=== PATIENT | female | born 1955 | race Caucasian/White ===

== ENCOUNTER 2024-04-12 13:14 | Observation (INO) ==
--- NOTE | 2024-04-12 14:21 | Emergency Department Note ---
Impression & Plan Syncope, Hypoxia ED Provider Note NAME: JESSICA BYRD AGE: 68 SEX: F : 1955 ARRIVES VIA: Ambulance INFORMANT: Patient ED PROVIDER(S): Bo Noel DO CHIEF COMPLAINT: syncope HPI: Patient is a 68-year-old female who presents the ER for a syncopal episode. This is her fifth syncopal episode of syncope. She notes prior to the event she suddenly felt very clammy and lightheaded and passed out. She had no chest pain or shortness of breath. She did hit her head. Following the fall she complains of head pain and neck pain as well as right shoulder pain. No weakness or numbness. No belly pain. No nausea, vomiting, or diarrhea. No dysuria, urgency, or frequency. No other exacerbating or remitting factors. ADDITIONAL HISTORY OBTAINED: Per HPI Chronic Medical/Social Conditions Affecting Care: Per HPI PAST MEDICAL HISTORY:See Below PAST SURGICAL HISTORY:See Below FAMILY HISTORY:See Below SOCIAL HISTORY:See Below HOME MEDICATIONS:See Below ALLERGIES:See Below VITALS:See Below PHYSICAL EXAMINATION: GENERAL: Sitting up in bed, alert, well appearing, well nourished, no distress, non-toxic, lying in bed cervical collar in place EYE EXAM: normal conjunctiva. PERRL and EOM's grossly intact. HEAD: Normocephalic/atraumatic OROPHARYNX: no exudate, no erythema, lips, buccal mucosa, and tongue normal and mucous membranes are moist NECK: supple, no nuchal rigidity, no adenopathy, non-tender CHEST: No tenderness anteriorly and posteriorly with exception of tenderness over the right shoulder LUNGS: Clear to auscultation. Normal chest wall mechanics HEART: no murmurs, S1 normal and S2 normal ABDOMEN: abdomen soft, non-tender, normo-active bowel sounds, no masses, no rebound or guarding. PELVIS: Stable to compression anteriorly and posteriorly BACK: Back is symmetrical on inspection and there is no deformity, no midline tenderness, no CVA tenderness. SKIN: no rashes and no bruising UPPER EXTREMITIES: Flexion-extension left shoulder elbow wrist and grasp as well as palpation of the humerus and forearm without tenderness. Tenderness over the right humeral head with no tenderness throughout the remainder of the humerus and forearm and hand. LOWER EXTREMITIES: No pitting edema. NEURO EXAM: Normal sensorium, cranial nerves II-XII grossly intact, normal speech, no gross weakness of arms, no gross weakness of legs. No drift. Finger to nose intact. Gross sensation intact. MEDICAL DECISION MAKING: Patient is a 68-year-old female who presents ER for syncopal episode. Upon arrival of EMS she was found hypoxic and she was found to be hypoxic upon arrival here for short period of time. IV was established blood work was obtained. Labs show no significant leukocytosis or anemia. BMP along with LFTs bilirubin and lipase is unremarkable. Troponin was negative. With her age and presentation I did discuss case with the hospitalist for the syncopal episode in setting of short period of hypoxia. Loop recorder was interrogated and per my call from [employer] showed a normal sinus rhythm today. Patient was given IV fluids. Consults/Care Managements Discussions: Per [facility] Triage Nursing notes reviewed. Limited review of prior medical records performed Vital Signs: reviewed and remarkable for hypoxia Differential diagnosis: Differential diagnosis includes etiologies such as vasovagal event, infection, hypoglycemia, electrolyte abnormalities, cardiac sources, intracerebral event, toxicologic, neurologic, as well as others were entertained. ER treatment provided: See below Diagnostics interpreted by me include EKG and cardiac monitoring as listed below: -Cardiac Monitoring: An order was placed for continuous cardiac monitoring. The monitor shows a rate of 82 with sinus rhythm. -ECG: Sinus rhythm rate 82 Normal axis No PVCs QTc 436 -Laboratory studies:Interpreted by me as stated above in [facility] and shown below. Imaging studies: Xrays: As interpreted by me: Portable AP upright 1 view of the chest shows no focal infiltrate X-ray of the shoulder shows no acute fracture CTs show: CT head cervical spine and CT of the chest was negative Procedures:none Critical Care: None Past Med/Surg History Problem List (Updated 04/12/24 @ 20:20 by Bo Noel DO) Hypoxia (Acute) Depression Hyperlipidemia Essential hypertension Syncope (Acute) Social History Smoking Status: Never smoker Feels Safe at Home: Yes Allergies Allergies Allergy/AdvReac Type Severity Reaction Status Date / Time No Known Allergies Allergy Unverified 04/12/24 17:04 Home Meds Home Medications Medication Instructions Recorded Confirmed aspirin 81 mg tablet,delayed 81 mg PO HS 04/12/24 04/12/24 release buspirone 10 mg tablet 10 mg PO TID 04/12/24 04/12/24 cholecalciferol (vitamin D3) 50 50 mcg PO QAM 04/12/24 04/12/24 mcg (2,000 unit) tablet (Vitamin D3) levothyroxine 100 mcg tablet 1 mcg PO DAILYBB 04/12/24 04/12/24 metoprolol succinate 25 mg 25 mg PO HS 04/12/24 04/12/24 tablet,extended release 24 hr rabeprazole 20 mg tablet,delayed 20 mg PO BID 04/12/24 04/12/24 release rosuvastatin 20 mg tablet 20 mg PO HS 04/12/24 04/12/24 Results & Data (ED) Vital Signs Vital Signs - 24 hr 04/12/24 13:27 04/12/24 13:28 04/12/24 13:30 Temperature 37.2 C Temperature Source Oral Pulse Rate 83 94 H 85 Pulse Rate from SpO2 Sensor Respiratory Rate 20 Respiratory Effort / Characteristics Non-Labored Spontaneous Respiratory Depth Normal Blood Pressure 136/74 Blood Pressure Mean 94 Pulse Oximetry 97 Oxygen Delivery Method Room Air Oxygen Flow Rate Sepsis Recent Fever Within 48 Hours No Sepsis New/Unexplained Change in Mental Status No Sepsis Action Taken by Nursing No Action Required 04/12/24 13:30 04/12/24 14:00 04/12/24 14:16 Temperature Temperature Source Pulse Rate 92 H 86 Pulse Rate from SpO2 Sensor 86 Respiratory Rate 17 15 Respiratory Effort / Characteristics Respiratory Depth Blood Pressure Blood Pressure Mean Pulse Oximetry 89 L 88 L Oxygen Delivery Method Room Air Room Air Oxygen Flow Rate Sepsis Recent Fever Within 48 Hours Sepsis New/Unexplained Change in Mental Status Sepsis Action Taken by Nursing 04/12/24 14:19 04/12/24 14:30 04/12/24 15:00 Temperature Temperature Source Pulse Rate 91 H Pulse Rate from SpO2 Sensor 88 Respiratory Rate 12 Respiratory Effort / Characteristics Respiratory Depth Blood Pressure Blood Pressure Mean Pulse Oximetry 95 100 Oxygen Delivery Method Nasal Cannula Room Air Oxygen Flow Rate 2 Sepsis Recent Fever Within 48 Hours Sepsis New/Unexplained Change in Mental Status Sepsis Action Taken by Nursing 04/12/24 15:12 04/12/24 15:13 04/12/24 15:13 Temperature Temperature Source Pulse Rate 90 86 Pulse Rate from SpO2 Sensor Respiratory Rate 15 20 Respiratory Effort / Characteristics Respiratory Depth Blood Pressure 140/77 Blood Pressure Mean 86 Pulse Oximetry Oxygen Delivery Method Oxygen Flow Rate Sepsis Recent Fever Within 48 Hours Sepsis New/Unexplained Change in Mental Status Sepsis Action Taken by Nursing 04/12/24 15:37 04/12/24 15:37 04/12/24 16:00 Temperature Temperature Source Pulse Rate 87 Pulse Rate from SpO2 Sensor 88 Respiratory Rate 19 Respiratory Effort / Characteristics Respiratory Depth Blood Pressure 141/89 H 135/80 Blood Pressure Mean 126 89 Pulse Oximetry 97 Oxygen Delivery Method Oxygen Flow Rate Sepsis Recent Fever Within 48 Hours Sepsis New/Unexplained Change in Mental Status Sepsis Action Taken by Nursing 04/12/24 16:00 04/12/24 16:30 04/12/24 16:30 Temperature Temperature Source Pulse Rate 87 87 Pulse Rate from SpO2 Sensor 86 87 Respiratory Rate 16 23 Respiratory Effort / Characteristics Respiratory Depth Blood Pressure 155/83 H Blood Pressure Mean 97 Pulse Oximetry 93 Oxygen Delivery Method Oxygen Flow Rate Sepsis Recent Fever Within 48 Hours Sepsis New/Unexplained Change in Mental Status Sepsis Action Taken by Nursing Laboratory Data 04/12/24 13:37 04/12/24 13:37 Lab Results 04/12/24 Range/Units 13:37 WBC 7.39 (4.8-10.8) K/ul RBC 4.59 (4.20-5.40) M/uL Hgb 13.7 (12.0-16.0) g/dl Hct 40.7 (37.0-47.0) % MCV 88.7 (80.0-100.0) fL MCH 29.8 (25.0-34.0) pg MCHC 33.7 (32.0-36.0) g/dL RDW Std Deviation 43.8 (36.4-46.3) fL RDW Coeff of Candy 13.5 (11.5-14.5) % Plt Count 323 (130-400) K/uL MPV 10.6 (9.4-12.4) fL Immature Gran % (Auto) 0.4 % Neut % (Auto) 74.0 % Lymph % (Auto) 16.1 % [place] % (Auto) 7.3 % Eos % (Auto) 1.5 % Baso % (Auto) 0.7 % Neut # (Auto) 5.47 (1.40-6.50) K/uL Lymph # (Auto) 1.19 L (1.20-3.40) K/uL [place] # (Auto) 0.54 (0.11-0.59) K/uL Eos # (Auto) 0.11 (0.00-0.50) K/uL Baso # (Auto) 0.05 (0.00-0.20) K/uL Immature Gran # (Auto) 0.03 (0.01-0.20) K/uL Sodium 135 L (136-145) mmol/L Potassium 3.6 (3.5-5.1) mmol/L Chloride 101 (98-107) mmol/L Carbon Dioxide 28 (21-32) mmol/L Anion Gap 6 (3-11) BUN 13 (6-23) mg/dl Creatinine 1.01 (0.6-1.2) mg/dl Est Cr Clr Drug Dosing 50.6 ml/min Est GFR ( Amer) 65.3 ml/min Est GFR (Non-Af Amer) 56.4 ml/min BUN/Creatinine Ratio 12.9 (10-20) Glucose 150 H (70-99(Fasting)) mg/dl Calcium 9.2 (8.6-10.3) mg/dl Total Bilirubin 0.5 (0.2-1.0) mg/dl AST 18 (13-39) U/L ALT 14 (7-52) U/L Alkaline Phosphatase 90 (34-104) U/L Troponin I High Sens 4.2 (0-14) pg/ml Total Protein 6.8 (6.0-8.3) gm/dl Albumin 4.3 (3.4-5.0) gm/dl Globulin 2.5 (2.5-4.0) gm/dl Albumin/Globulin Ratio 1.7 (0.9-2) Lipase 19 (11-82) U/L Administered Medications Discontinued Medications Ioversol (Optiray 320 125ml) 118 ml IV ONCE ONE Stop: 04/12/24 15:38 Last Admin: 04/12/24 15:37 Dose: 118 ml Documented By: MAF Imaging Data Radiologist's Impression: Chest X-Ray 04/12/24 14:16 XR chest 1V portable CLINICAL HISTORY: Chest pain, nonspecific COMPARISON STUDY: No previous studies for comparison. FINDINGS: An electronic device projects over the left chest. Lung volumes are normal. Lungs are clear. There is no pneumothorax or pleural effusion. Cardiac size is normal. Mediastinal contours are normal. There is no evidence for pulmonary edema. IMPRESSION: No acute cardiopulmonary findings. ACT 112: Negative or not required by law. Electronically signed by: Manan Hussein M.D. 04/12/2024 2:[address] 04/12/24 14:17 CT SCAN OF THE CERVICAL SPINE CLINICAL HISTORY: Syncope. Fall. COMPARISON STUDY: No priors. TECHNIQUE: CT scan of the cervical spine is performed from the skull base to the upper thoracic spine. Images are reviewed in the axial, sagittal, and coronal planes. IV contrast was not administered for this examination. A dose lowering technique was utilized adhering to the principles of ALARA. FINDINGS: Skeletal structures: The skeletal structures are osteopenic. There is no evidence of fracture or subluxation involving the cervical spine. Vertebral body height and alignment are maintained. There is straightening of cervical lordosis. Anterior osteophytes are seen throughout. The odontoid process and lateral masses are intact. The atlantoaxial articulation is preserved noting productive degenerative change. The spinous processes appear intact. There is mild multilevel facet arthropathy. Intervertebral discs: There is moderate to severe disc space narrowing at C4-C5, C5-C6, and C6-C7 with associated endplate sclerosis. Central canal: Posterior disc osteophyte complexes at C4-C5, C5-C6, and C6-C7 may contribute to acquired compromise of the central canal. Soft tissues: The prevertebral and paraspinous soft tissues are within normal limits. Calvarium: The visualized calvarium at the skull base appears intact. Brain parenchyma: Partially visualized brain parenchyma at the skull base is within normal limits. Sinuses and mastoids: The visualized paranasal sinuses are clear. There is trace left mastoid effusion. The right mastoid air cells are well pneumatized. Lung apices: Advanced emphysematous change and fibrosis is seen at the apices. IMPRESSION: 1. There is no evidence of fracture or subluxation involving the cervical spine. 2. Osteopenia and spondylotic change as above. 3. Emphysema. ACT 112: Negative or not required by law. Electronically signed by: Andrea Ramsey M.D. 04/12/2024 3:[address] 04/12/24 14:17 CT OF THE HEAD WITHOUT CONTRAST CLINICAL HISTORY: Fall. COMPARISON STUDY: No previous studies for comparison. TECHNIQUE: Helical axial images of the head were obtained without IV contrast. Automated exposure control was utilized for the study. A dose lowering technique was utilized adhering to the principles of ALARA. FINDINGS: No acute intracranial hemorrhage, midline shift or mass effect is present. The ventricular system is unremarkable. The basal cisterns are patent. No extra-axial collections are present. There are no findings to suggest acute dural sinus thrombosis or acute territorial infarct. No significant calvarial abnormalities are present. Visualized portions of the sinuses and mastoid air cells are clear. There is a small right frontal scalp contusion. IMPRESSION: 1. No acute intracranial findings. 2. Small right frontal scalp contusion. No calvarial fracture. ACT 112: Negative or not required by law. Electronically signed by: Manan Hussein M.D. 04/12/2024 3:48 PM Shoulder X-Ray 04/12/24 14:17 XR shoulder RT min 2V routine CLINICAL HISTORY: r shoulder pain TECHNIQUE: 3 views of the right shoulder were obtained. Comparison: None available at the time of this dictation. FINDINGS: There is no evidence of an acute fracture. Joint spaces are well-preserved. The overlying soft tissues are unremarkable. The visualized portions of the lungs are clear. IMPRESSION: No evidence of acute osseous injury. ACT 112: Negative or not required by law. Electronically signed by: Almas Olivera M.D. 04/12/2024 2:57 PM Chest CTA 04/12/24 14:40 CT ANGIOGRAPHY OF THE CHEST, PULMONARY EMBOLUS PROTOCOL CLINICAL HISTORY: Syncope. Hypoxia. COMPARISON STUDY: Chest radiograph performed earlier today. TECHNIQUE: Following IV administration of 118 mL of Optiray, helical axial images of the chest were obtained utilizing the pulmonary embolus protocol. Maximal intensity projections and sagittal and coronal reformats were viewed on an independent 3D workstation. IV contrast was administered without complication. Automated exposure control was utilized for the study. A dose lowering technique was utilized adhering to the principles of ALARA. CT DOSE: 1762.95 mGy.cm FINDINGS: No pulmonary emboli are identified. There is no thoracic aortic dissection. No pericardial effusion is present. The heart is mildly enlarged. There is no thoracic lymphadenopathy. Moderate emphysema is present. No consolidation is identified to suggest pneumonia. Subpleural opacities favor atelectasis. Several perifissural nodules along the minor fissure measure up to 7 mm. A few additional small subpleural nodules measure up to 4 mm. No acute fractures within the visualized bony thorax are identified. Pancreatic duct is prominent, measuring approximately 4 mm in caliber. IMPRESSION: 1. No pulmonary emboli identified. 2. No acute intrathoracic findings. 3. Emphysema. Subpleural opacities suggestive of atelectasis. No consolidation to suggest pneumonia. 4. A few small subpleural/perifissural nodules within the right lung. These are likely benign. Follow up chest CT in 6 months to ensure stability is recommended. ACT 112: Negative or not required by law. Electronically signed by: Manan Hussein M.D. 04/12/2024 3:57 PM Discharge Plan Visit Data Chief Complaint: Syncope Stated Complaint: SYNCOPE ED Provider: Bo Noel Discharge Problem: Syncope, Hypoxia Patient Disposition: Admitted As Inpatient Discharge Instructions Interventions: ED Discharge Assessment Last Done: 04/12/24 18:19 Discharge Problem: Syncope Qualifiers: Syncope type: unspecified Qualified Code(s): R55 - Syncope and collapse
[2024-04-12 14:49] LABS: Basophils # (auto) 0.05 K/uL (0.00-0.20); Basophils % (auto) 0.7 %; Eosinophils # (auto) 0.11 K/uL (0.00-0.50); Eosinophils % (auto) 1.5 %; Hematocrit (blood only) 40.7 % (37.0-47.0); Hemoglobin 13.7 g/dl (12.0-16.0); Immature Granulocytes # (auto) 0.03 K/uL (0.01-0.20); Immature Granulocytes % (auto) 0.4 %; Lymphocytes # (auto) 1.19 K/uL (1.20-3.40); Lymphocytes % (auto) 16.1 %; Mean Corpuscular Hemoglobin 29.8 pg (25.0-34.0); Mean Corpuscular Hgb Conc 33.7 g/dL (32.0-36.0); Mean Corpuscular Volume 88.7 fL (80.0-100.0); Mean Platelet Volume 10.6 fL (9.4-12.4); Monocytes # (auto) 0.54 K/uL (0.11-0.59); Monocytes % (auto) 7.3 %; Neutrophils # (auto) 5.47 K/uL (1.40-6.50); Platelet Count 323 K/uL (130-400); RDW Coefficient of Variation 13.5 % (11.5-14.5); RDW Standard Deviation 43.8 fL (36.4-46.3); Red Blood Count 4.59 M/uL (4.20-5.40); White Blood Count 7.39 K/ul (4.8-10.8)
[2024-04-12 14:56] LABS: Albumin Globulin Ratio 1.7 (0.9-2); Albumin Level 4.3 gm/dl (3.4-5.0); BUN Creatinine Ratio 12.9 (10-20); Bilirubin,Total 0.5 mg/dl (0.2-1.0); Calcium 9.2 mg/dl (8.6-10.3); Creatinine Clr Calc Pharmacy 50.6 ml/min; Est GFR (African American) 65.3 ml/min; Est GFR (Non-African American) 56.4 ml/min; Globulin 2.5 gm/dl (2.5-4.0); Potassium 3.6 mmol/L (3.5-5.1); Total Protein 6.8 gm/dl (6.0-8.3)
--- NOTE | 2024-04-12 14:58 | XRay Report ---
XR shoulder RT min 2V routine CLINICAL HISTORY: r shoulder pain TECHNIQUE: 3 views of the right shoulder were obtained. Comparison: None available at the time of this dictation. FINDINGS: There is no evidence of an acute fracture. Joint spaces are well-preserved. The overlying soft tissue s are unremarkable. The visualized portions of the lungs are clear. IMPRESSION: No evidence of acute osseous injury. ACT 112: Negative or not required by law. Electronically signed by: Almas Olivera M.D. 04/12/2024 2:57 PM
--- NOTE | 2024-04-12 14:59 | XRay Report ---
XR chest 1V portable CLINICAL HISTORY: Chest pain, nonspecific COMPARISON STUDY: No previous studies for comparison. FINDINGS: An electronic device projects over the left chest. Lung volumes are normal. Lungs are clear . There is no pneumothorax or pleural effusion. Cardiac size is normal. Mediastinal contours are norm al. There is no evidence for pulmonary edema. IMPRESSION: No acute cardiopulmonary findings. ACT 112: Negative or not required by law. Electronically signed by: Manan Hussein M.D. 04/12/2024 2:58 PM
[2024-04-12 15:01] LABS: Troponin I High Sensitivity 4.2 pg/ml (0-14)
[2024-04-12] MEDS: OPTIRAY 320 125ml IV ONE (15:37)
--- NOTE | 2024-04-12 15:50 | CT Scan Report ---
CT OF THE HEAD WITHOUT CONTRAST CLINICAL HISTORY: Fall. COMPARISON STUDY: No previous studies for comparison. TECHNIQUE: Helical axial images of the head were obtained without IV contrast. Automated exposure con trol was utilized for the study. A dose lowering technique was utilized adhering to the principles o f ALARA. FINDINGS: No acute intracranial hemorrhage, midline shift or mass effect is present. The ventricular system is unremarkable. The basal cisterns are patent. No extra-axial collections are present. There are no findings to suggest acute dural sinus thrombosis or acute territorial infarct. No significant calvarial abnormalities are present. Visualized portions of the sinuses and mastoid air cells are katelyn ar. There is a small right frontal scalp contusion. IMPRESSION: 1. No acute intracranial findings. 2. Small right frontal scalp contusion. No calvarial fracture. ACT 112: Negative or not required by law. Electronically signed by: Manan Hussein M.D. 04/12/2024 3:48 PM
--- NOTE | 2024-04-12 15:57 | CT Scan Report ---
CT SCAN OF THE CERVICAL SPINE CLINICAL HISTORY: Syncope. Fall. COMPARISON STUDY: No priors. TECHNIQUE: CT scan of the cervical spine is performed from the skull base to the upper thoracic spine . Images are reviewed in the axial, sagittal, and coronal planes. IV contrast was not administered fo r this examination. A dose lowering technique was utilized adhering to the principles of ALARA. FINDINGS: Skeletal structures: The skeletal structures are osteopenic. There is no evidence of fracture or subl uxation involving the cervical spine. Vertebral body height and alignment are maintained. There is s traightening of cervical lordosis. Anterior osteophytes are seen throughout. The odontoid process and lateral masses are intact. The atlantoaxial articulation is preserved noting productive degenerative change. The spinous processes appear intact. There is mild multilevel facet arthropathy. Intervertebral discs: There is moderate to severe disc space narrowing at C4-C5, C5-C6, and C6-C7 wit h associated endplate sclerosis. Central canal: Posterior disc osteophyte complexes at C4-C5, C5-C6, and C6-C7 may contribute to acqui red compromise of the central canal. Soft tissues: The prevertebral and paraspinous soft tissues are within normal limits. Calvarium: The visualized calvarium at the skull base appears intact. Brain parenchyma: Partially visualized brain parenchyma at the skull base is within normal limits. Sinuses and mastoids: The visualized paranasal sinuses are clear. There is trace left mastoid effusio n. The right mastoid air cells are well pneumatized. Lung apices: Advanced emphysematous change and fibrosis is seen at the apices. IMPRESSION: 1. There is no evidence of fracture or subluxation involving the cervical spine. 2. Osteopenia and spondylotic change as above. 3. Emphysema. ACT 112: Negative or not required by law. Electronically signed by: Andrea Ramsey M.D. 04/12/2024 3:54 PM
--- NOTE | 2024-04-12 15:59 | CT Scan Report ---
CT ANGIOGRAPHY OF THE CHEST, PULMONARY EMBOLUS PROTOCOL CLINICAL HISTORY: Syncope. Hypoxia. COMPARISON STUDY: Chest radiograph performed earlier today. TECHNIQUE: Following IV administration of 118 mL of Optiray, helical axial images of the chest were o btained utilizing the pulmonary embolus protocol. Maximal intensity projections and sagittal and cor onal reformats were viewed on an independent 3D workstation. IV contrast was administered without co mplication. Automated exposure control was utilized for the study. A dose lowering technique was ut ilized adhering to the principles of ALARA. CT DOSE: 1762.95 mGy.cm FINDINGS: No pulmonary emboli are identified. There is no thoracic aortic dissection. No pericardial effusion is present. The heart is mildly enlarged. There is no thoracic lymphadenopathy. Moderate em physema is present. No consolidation is identified to suggest pneumonia. Subpleural opacities favor a telectasis. Several perifissural nodules along the minor fissure measure up to 7 mm. A few additional small subpleural nodules measure up to 4 mm. No acute fractures within the visualized bony thorax ar e identified. Pancreatic duct is prominent, measuring approximately 4 mm in caliber. IMPRESSION: 1. No pulmonary emboli identified. 2. No acute intrathoracic findings. 3. Emphysema. Subpleural opacities suggestive of atelectasis. No consolidation to suggest pneumonia. 4. A few small subpleural/perifissural nodules within the right lung. These are likely benign. Follow up chest CT in 6 months to ensure stability is recommended. ACT 112: Negative or not required by law. Electronically signed by: Manan Hussein M.D. 04/12/2024 3:57 PM
--- NOTE | 2024-04-12 17:13 | History & Physical Report ---
Date of Service April 12, 2024 Assessment & Plan (1) Syncope: Plan: Her symptoms sound as if they are cardiac mediated. Metoprolol is on hold. Telemetry. Consult cardiology. Check thyroid status. Obtain cardiac echo and carotid Doppler studies. Monitor orthostatic blood pressures. IV fluids ordered (2) Essential hypertension: Plan: Orthostatic blood pressure checks. Hold metoprolol for now. (3) Hyperlipidemia: Plan: She is on statin therapy, Crestor. Check fasting lipid profile (4) Depression: Plan: She takes BuSpar which is on hold Plan To be determined History of Present Illness Chief Complaint: Recurrent syncope Primary Care Provider: ZAINA Packer 68-year-old female with a history of essential hypertension, hyperlipidemia, depression. She has suffered multiple recent syncopal episodes, this being her fifth. She states that he has syncope occurs whether she is sitting or standing and occurs without warning. She denies vertigo. No recent fever or evidence of UTI. No melena or hematochezia. She does have a loop recorder in place that was evaluated in the ED with no significant dysrhythmia noted. Chest CTA negative for PE. Chest x-ray negative. She denies palpitations. Right shoulder negative for fracture. Cervical spine CT scan negative for acute fracture. Head CT scan negative. Allergies Allergy/AdvReac Type Severity Reaction Status Date / Time No Known Allergies Allergy Unverified 04/12/24 17:04 Home Medications Medication Instructions Recorded Confirmed Type aspirin 81 mg tablet,delayed 81 mg PO HS 04/12/24 04/12/24 History release buspirone 10 mg tablet 10 mg PO TID 04/12/24 04/12/24 History cholecalciferol (vitamin D3) 50 50 mcg PO QAM 04/12/24 04/12/24 History mcg (2,000 unit) tablet (Vitamin D3) levothyroxine 100 mcg tablet 1 mcg PO DAILYBB 04/12/24 04/12/24 History metoprolol succinate 25 mg 25 mg PO HS 04/12/24 04/12/24 History tablet,extended release 24 hr rabeprazole 20 mg tablet,delayed 20 mg PO BID 04/12/24 04/12/24 History release rosuvastatin 20 mg tablet 20 mg PO HS 04/12/24 04/12/24 History Past Med/Surg History Problem List (Updated 04/12/24 @ 17:11 by Jaswant Yuan MD) Depression Hyperlipidemia Essential hypertension Syncope Social History Smoking Status: Never smoker Feels Safe at Home: Yes Review of Systems 2 Review of Systems: Constitutional-no fever or chills ENT-no blurred vision, no double vision, no epistaxis, no sore throat Respiratory-no cough, no wheezing, no shortness of breath Cardiac-no palpitations, no chest pain, no syncope GI-no nausea, vomiting, diarrhea, melena, hematochezia -no urinary retention, no urinary incontinence, no dysuria, no hematuria Musculoskeletal-no joint pain, no muscle tenderness Skin-no bruising, no rashes, no pruritus Neuro-no isolated weakness, no paresthesia Psych-no depression, no anxiety Physical Exam 2 Physical Exam: General-alert and oriented x3, no fever, no chills HEENT-head atraumatic and normocephalic, pupils equal and reactive to light, extraocular muscles intact Neck-no lymphadenopathy or thyromegaly, trachea midline Chest-clear to auscultation. No rales, wheezing or rhonchi Cardiac-regular rate and rhythm, normal S1 and S2 Abdomen-normal bowel sounds, no hepatosplenomegaly Extremities-no cyanosis, clubbing, or edema Neuro-cranial nerves II through XII intact, motor and sensory function within normal limits, strength symmetrical, no focal deficits Psych-normal affect, normal mood Results & Data Results & Data Vital Signs (Past 12 Hours) Vital Signs Temp Pulse Resp BP Pulse Ox O2 Del Method O2 Flow Rate 04/12/24 16:30 155/83 H 04/12/24 16:30 87 23 93 04/12/24 16:00 87 16 04/12/24 16:00 135/80 04/12/24 15:37 87 19 97 04/12/24 15:37 141/89 H 04/12/24 15:13 86 20 04/12/24 15:13 140/77 04/12/24 15:12 90 15 04/12/24 15:00 Room Air 04/12/24 14:30 91 H 12 100 04/12/24 14:19 95 Nasal Cannula 2 04/12/24 14:16 88 L Room Air 04/12/24 14:00 86 15 89 L Room Air 04/12/24 13:30 92 H 17 04/12/24 13:30 85 04/12/24 13:28 37.2 C 94 H 20 136/74 97 Room Air 04/12/24 13:27 83 Laboratory Results 04/12/24 13:37 04/12/24 13:37 Code Status & VTE Plan Code Status Full code PG Care Time/CCT Total # of Minutes Spent Total Time Spent with Patient: Total time spent is greater than 50% in coordination of care (as documented) at patient's floor/unit and/or counseling patient: Coding Level of Care Code 30162 INT INP/OBS CARE 3/75MIN Diagnoses Syncope R55 Essential hypertension I10 Hyperlipidemia E78.5 Depression F32.A
--- NOTE | 2024-04-12 17:49 | Electrocardiogram Report ---
Test Reason : Blood Pressure : / mmHG Vent. Rate : 082 BPM Atrial Rate : 082 BPM P-R Int : 150 ms QRS Dur : 068 ms QT Int : 374 ms P-R-T Axes : 072 022 038 degrees QTc Int : 436 ms Normal sinus rhythm Low voltage QRS Borderline ECG No previous ECGs available Confirmed by Mark Osorio ([id number]) on 04/12/2024 5:49:20 PM Referred By: Confirmed By:Mark Osorio
[2024-04-12] MEDS ORDERED: ONDANSETRON INJ 2 MG/ML 2 ML VIAL IV PRN (20:06)
[2024-04-12] MEDS: ACETAMINOPHEN 325 MG TAB PO PRN (20:17)
[2024-04-12] MEDS: SODIUM CHLORIDE 0.9% 1,000 ML IV SCH (20:17)
[2024-04-12] MEDS: ASPIRIN 81 MG ECTAB PO SCH (21:11)
[2024-04-12] MEDS: ROSUVASTATIN CALCIUM 20 MG TAB PO SCH (21:11)
[2024-04-12] MEDS: HEPARIN SOD 5,000 UNIT/0.5 ML VIAL SQ SCH (21:15)
[2024-04-12] MEDS: IBUPROFEN 600 MG TAB PO SCH (21:26)
[2024-04-12] MEDS: HYDROmorphone INJ 0.5 MG/0.5 ML SYR IV STA (23:01)
--- NOTE | 2024-04-12 23:27 | Ultrasound Report ---
Exam(s): US CAROTID EXAM: US Duplex Bilateral Extracranial Arteries CLINICAL HISTORY: Reason for exam: syncope. TECHNIQUE: Real-time duplex ultrasound scan of the extracranial arteries integrating B-mode two-dimensional vascular structure, Doppler spectral analysis and color flow Doppler imaging. COMPARISON: No relevant prior studies available. FINDINGS: Right common carotid artery: Unremarkable. No occlusion or significant stenosis on color flow and spectral Doppler imaging. Right internal carotid artery: Unremarkable. No occlusion or significant stenosis on color flow and spectral Doppler imaging. Right external carotid artery: Unremarkable. No occlusion or significant stenosis on color flow and spectral Doppler imaging. Right vertebral artery: Unremarkable. Antegrade flow. Right ICA/CCA ratio: Unremarkable. Within normal limits. Left common carotid artery: Unremarkable. No occlusion or significant stenosis on color flow and spectral Doppler imaging. Left internal carotid artery: Unremarkable. No occlusion or significant stenosis on color flow and spectral Doppler imaging. Left external carotid artery: Unremarkable. No occlusion or significant stenosis on color flow and spectral Doppler imaging. Left vertebral artery: Unremarkable. Antegrade flow. Left ICA/CCA ratio: Unremarkable. Within normal limits. Lymph nodes: Unremarkable. No lymphadenopathy. CAROTID STENOSIS REFERENCE USING SRU CRITERIA: Mild - <50% stenosis. ICA PSV is less than 125 cm/second and plaque or intimal thickening is visible. Moderate - 50-69% stenosis. ICA PSV is 125 to 230 cm/second and plaque is visible. Severe - 70-94% stenosis. ICA PSV is more than 230 cm/second and visible plaque with lumen narrowing is seen. Near occlusion - 95-99% stenosis. ICA PSV is variable and significant plaque with luminal narrowing is seen. Occluded - 100% stenosis. No flow identified. IMPRESSION: Normal duplex ultrasound of the neck. Electronically signed by: Bo Davila MD 04/12/24 23:25 PM
[2024-04-13 02:32] LABS: Appearance Urine Clear (Clear); Bacteria Urine Automated None Seen (None Seen); Bilirubin Urine Negative (Negative); Blood Urine Negative (Negative); Cast Urine Automated 0-2 /lpf (0-2); Color Urine Yellow; Epithelial Cell Urine Auto 0-2 /hpf (0-2); Glucose Urine UA Negative (Negative); Ketones Urine Negative (Negative); Leukocyte Esterase Urine 1+ (Negative); Nitrite Urine Negative (Negative); Protein Urine Negative (Negative); RBC Urine Automated 0-2 /hpf (0-2); Specific Gravity Urine > 1.045 (1.000-1.030); Urobilinogen Urine Negative (Negative); WBC Urine Automated 21-50 /hpf (0-5)
[2024-04-13] MEDS: LEVOTHYROXINE SODIUM 100 MCG TABLET PO SCH (05:29)
[2024-04-13] MEDS: DICLOFENAC SOD 1% GEL 100 GM TUBE EXT PRN (05:57)
[2024-04-13] MEDS: PANTOprazole 40 MG TAB PO SCH (08:49)
[2024-04-13] MEDS: traMADol HCL 50 MG TABLET PO PRN (08:49)
[2024-04-13] MEDS: CHOLECALCIFEROL 25 MCG (1000 UNITS) TAB PO SCH (08:50)
--- NOTE | 2024-04-13 11:24 | Hospitalist Progress Note ---
Date of Service April 13, 2024 Assessment & Plan (1) Syncope: Plan: Her symptoms sound as if they are cardiac mediated. Metoprolol remains on hold. Telemetry. Cardiology consultation and cardiac echo report remain pending. Thyroid status is unremarkable. Carotid Doppler evaluation is unremarkable. Monitor orthostatic blood pressures. Continue IV fluids for now (2) Essential hypertension: Plan: Will allow blood pressure to run on the high side if necessary. Metoprolol has been held on admission. Telemetry. (3) Hyperlipidemia: Plan: Stable. Continue statin therapy (4) Depression: Plan: BuSpar has been discontinued (5) Right shoulder pain: Plan: From falling at home associated with a syncopal episode. X-rays are negative for fracture. Will use Vicodin as needed for pain control Plan Hopeful discharge to home tomorrow, April 14 Admission and Anticipated Discharge Date Admission Date: April 12, 2024 Subjective Alert and oriented. Vital signs appear to be stable. Carotid Doppler studies are unremarkable. BuSpar has been discontinued and metoprolol is on hold. Cardiac echo report pending. Cardiology consultation ordered and pending. Will request physical therapy evaluation. Hopefully she can go home tomorrow, April 14 Review of Systems 2 Review of Systems: Constitutional-no fever or chills ENT-no blurred vision, no double vision, no epistaxis, no sore throat Respiratory-no cough, no wheezing, no shortness of breath Cardiac-no palpitations, no chest pain, no syncope GI-no nausea, vomiting, diarrhea, melena, hematochezia -no urinary retention, no urinary incontinence, no dysuria, no hematuria Musculoskeletal-no joint pain, no muscle tenderness Skin-no bruising, no rashes, no pruritus Neuro-no isolated weakness, no paresthesia Psych-no depression, no anxiety Physical Exam 2 Physical Exam: General-alert and oriented x3, no fever, no chills HEENT-head atraumatic and normocephalic, pupils equal and reactive to light, extraocular muscles intact Neck-no lymphadenopathy or thyromegaly, trachea midline Chest-clear to auscultation. No rales, wheezing or rhonchi Cardiac-regular rate and rhythm, normal S1 and S2 Abdomen-normal bowel sounds, no hepatosplenomegaly Extremities-no cyanosis, clubbing, or edema Neuro-cranial nerves II through XII intact, motor and sensory function within normal limits, strength symmetrical, no focal deficits Psych-normal affect, normal mood Results & Data Results & Data Vital Signs (Past 12 Hours) Vital Signs Temp Pulse Pulse Resp BP Pulse Ox O2 Del Method 04/13/24 07:25 36.8 C 68 14 136/81 94 Room Air 04/13/24 07:17 62 04/13/24 04:06 36.4 C L 71 20 112/70 92 Room Air 04/12/24 23:25 36.7 C 67 20 116/71 93 Room Air Laboratory Results 04/12/24 13:37 04/12/24 13:37 PG Care Time/CCT Total # of Minutes Spent Total Time Spent with Patient: Total time spent is greater than 50% in coordination of care (as documented) at patient's floor/unit and/or counseling patient: Coding Level of Care Code 70893 SUB INP/OBS CARE 3/50MIN Diagnoses Syncope R55 Syncope type: unspecified Essential hypertension I10 Hyperlipidemia E78.5 Depression F32.A Right shoulder pain M25.511 (1) Syncope Syncope type: unspecified Qualified Code(s): R55 - Syncope and collapse
[2024-04-13] MEDS: HYDROCODONE/ACETAMOPHEN 5/325MG TAB PO PRN (12:13)
--- NOTE | 2024-04-13 14:50 | Cardiology Consultation ---
Date of Consultation April 13, 2024 Assessment & Plan (1) Recurrent syncope: Plan Generally healthy 68-year-old woman with history of recurrent syncope over period of many years. Suspect vasovagal with a vasodepressor rather than bradycardic mechanism given her benign findings on loop recorder and telemetry. Would allow some degree of "permissive hypertension" and avoid vasoactive medications. Unclear if her low-dose of metoprolol was for hypertension or an attempt to manage her recurrent syncope (low-dose beta-venancio sometimes utilized). At this point, even if this were used for syncope it does not appear effective, would discontinue her metoprolol. Agree with encouraging liberalized salt/sodium intake, even if this does result in some degree of mild hypertension. Minimal orthostatic change on exam, unlikely she has major autonomic insufficiency, but given recurrent syncope could consider fludrocortisone at low-dose with gradual upward titration. If she does have further presyncope, initiate fludrocortisone 0.1 mg every other day. Would recommend obtaining records from Dr. Ortiz's office to see the degree to which her syncope has been previously evaluated. Could increase activity and ambulate as tolerated, if she does well likely could be discharged home tomorrow. History of Present Illness Reason for Consultation: syncope, recurrent Requesting Physician: Jaswant Yuan MD Attending Physician: Jaswant Yuan MD History of Present Illness 68-year-old woman with history of recurrent syncope followed by Dr. Ortiz in [place] who was admitted yesterday after her fifth syncopal episode. She has an implantable loop recorder, ER interrogation apparently showed no dysrhythmia. Her syncopal episodes have occurred over the past decade, she has a short prodrome where she feels "clammy" then loses consciousness. Some episodes have occurred while she was seated, others while standing. She has sustained minor injuries at times. She notes that she felt a presyncopal episode earlier today, review of telemetry showed only sinus rhythm in the 60 [address] Ortiz had told her to increase her salt intake, and that ultimately she could require a pacemaker. At the time my evaluation this morning, the patient was asymptomatic and hemodynamically stable. She denied any chest pain, dyspnea, lightheadedness, or palpitations. She denies any recent orthostatic lightheadedness when standing up. Allergies Allergy/AdvReac Type Severity Reaction Status Date / Time No Known Allergies Allergy Unverified 04/12/24 17:04 Home Medications Medication Instructions Recorded Confirmed Type aspirin 81 mg tablet,delayed 81 mg PO HS 04/12/24 04/12/24 History release buspirone 10 mg tablet 10 mg PO TID 04/12/24 04/12/24 History cholecalciferol (vitamin D3) 50 50 mcg PO QAM 04/12/24 04/12/24 History mcg (2,000 unit) tablet (Vitamin D3) levothyroxine 100 mcg tablet 1 mcg PO DAILYBB 04/12/24 04/12/24 History metoprolol succinate 25 mg 25 mg PO HS 04/12/24 04/12/24 History tablet,extended release 24 hr rabeprazole 20 mg tablet,delayed 20 mg PO BID 04/12/24 04/12/24 History release rosuvastatin 20 mg tablet 20 mg PO HS 04/12/24 04/12/24 History Patient History Social History Smoking Status: Former smoker Second Hand Exposure: No; Do You Dip or Chew Tobacco: No; Hx Alcohol Use: Yes Alcohol type: wine Hx Substance Use: No Preferred Language: Italian Communication Ability: Effective 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 BP by MD 160/90 mmHg supine, no change upon sitting upright, SBP dropped to 140 mmHg upon standing (no symptoms). Pulse 70 bpm and regular. Skin: no ecchymoses or generalized lesions. HEENT: unremarkable. Neck: JVP at the clavicle at 90 degrees, no carotid bruits. Lungs: clear. Cardiac: regular rhythm, normal S1-2, no murmur. Abdomen: benign. Extremities: no edema, pulses intact. Neurologic: normal affect and conversation, nonfocal. Results & Data Vital Signs (Past 12 Hours) Vital Signs Temp Pulse Pulse Resp BP BP Pulse Ox 04/13/24 11:26 97.7 F 71 14 129/81 93 04/13/24 07:25 98.2 F 68 14 136/81 94 04/13/24 07:17 62 04/13/24 04:06 97.5 F L 71 20 112/70 92 O2 Del Method 04/13/24 11:26 Room Air 04/13/24 07:25 Room Air 04/13/24 07:17 04/13/24 04:06 Room Air Laboratory Results Normal CBC. Sodium 135, otherwise normal electrolytes, BUN 13, creatinine 1.01. Normal troponin (4.2). Diagnostic Findings Admission ECG showed sinus rhythm at 82 bpm with low voltage QRS, otherwise unremarkable. No prior study for comparison. Chest x-ray unremarkable. Chest CT showed emphysema but no pulmonary emboli. Carotid Doppler study showed no stenoses. PG Care Time/CCT Total # of Minutes Spent Total Time Spent with Patient: Total time spent is greater than 50% in coordination of care (as documented) at patient's floor/unit and/or counseling patient: Coding Level of Care Code 67985 INT INP/OBS CARE 3/75MIN Diagnoses Recurrent syncope R55
--- NOTE | 2024-04-13 16:37 | XCELERA ---
[id number]
[2024-04-13] MEDS: MoRPHine SULFATE 2 MG/ML CARP IV PRN (17:32)
--- NOTE | 2024-04-14 10:27 | Cardiology Progress Note ---
Date of Service April 14, 2024 Assessment & Plan (1) Recurrent syncope: Plan No further presyncope or syncope. As noted, vasovagal mechanism is suggested, would allow "permissive hypertension" and have her remain off metoprolol. Liberalize salt/sodium intake. Her BP has not been consistently elevated and she did demonstrate mild orthostasis on exam yesterday, again allowing "permissive hypertension" is appropriate. If she develops recurrent symptoms, could consider fludrocortisone in the future. Okay from discharge from my standpoint, she has an appointment with Dr. Ortiz in May but I recommended that she move this up a bit sooner for reevaluation. Admission and Anticipated Discharge Date Admission Date: April 12, 2024 Subjective Uneventful night. She feels well. No chest pain, dyspnea, lightheadedness, palpitations. SBP over the past 2 days has varied from 113-158 mmHg. Telemetry showed sinus rhythm in the 60-70 bpm range without significant pauses or tachycardia. Physical Exam Physical Exam: Appears comfortable. BP mildly hypertensive (151/84 mmHg). Pulse 60 bpm and regular. Early white female appears comfortable. Skin: no ecchymoses or generalized lesions. HEENT: unremarkable. Neck: JVP at the clavicle at 90 degrees, no carotid bruits. Lungs: clear. Cardiac: regular rhythm, normal S1-2, no murmur. Abdomen: benign. Extremities: no edema, pulses intact. Neurologic: normal affect and conversation, nonfocal. Results & Data Vital Signs (Past 12 Hours) Vital Signs Temp Pulse Pulse Resp BP BP Pulse Ox 04/14/24 08:26 97.5 F L 61 18 151/84 H 92 04/14/24 07:15 04/14/24 07:04 63 04/14/24 05:11 97.9 F 63 20 117/74 92 04/14/24 00:21 72 04/14/24 00:00 97.9 F 63 20 113/74 93 O2 Del Method 04/14/24 08:26 Room Air 04/14/24 07:15 Room Air 04/14/24 07:04 04/14/24 05:11 Room Air 04/14/24 00:21 04/14/24 00:00 Room Air PG Care Time/CCT Total # of Minutes Spent Total Time Spent with Patient: Total time spent is greater than 50% in coordination of care (as documented) at patient's floor/unit and/or counseling patient: Coding Level of Care Code 13321 SUB INP/OBS CARE 2MIN Diagnoses Recurrent syncope R55
--- NOTE | 2024-04-14 12:06 | Discharge Summary ---
Date of Service April 14, 2024 Admission HPI Per Admitting Provider 68-year-old female with a history of essential hypertension, hyperlipidemia, depression. She has suffered multiple recent syncopal episodes, this being her fifth. She states that he has syncope occurs whether she is sitting or standing and occurs without warning. She denies vertigo. No recent fever or evidence of UTI. No melena or hematochezia. She does have a loop recorder in place that was evaluated in the ED with no significant dysrhythmia noted. Chest CTA negative for PE. Chest x-ray negative. She denies palpitations. Right shoulder negative for fracture. Cervical spine CT scan negative for acute fracture. Head CT scan negative. Principal Diagnosis Recurrent syncope, mechanical fall with right shoulder pain Discharge Exam General-alert and oriented x3, no fever, no chills HEENT-head atraumatic and normocephalic, pupils equal and reactive to light, extraocular muscles intact Neck-no lymphadenopathy or thyromegaly, trachea midline. She has chronic neck pain that has been aggravated by her falling at home Chest-clear to auscultation. No rales, wheezing or rhonchi Cardiac-regular rate and rhythm, normal S1 and S2 Abdomen-normal bowel sounds, no hepatosplenomegaly Extremities-no cyanosis, clubbing, or edema. Right shoulder pain without fracture from falling at home Neuro-cranial nerves II through XII intact, motor and sensory function within normal limits, strength symmetrical, no focal deficits Psych-normal affect, normal mood Discharge Data Allergies Allergy/AdvReac Type Severity Reaction Status Date / Time No Known Allergies Allergy Unverified 04/12/24 17:04 Consultations 04/12/24 16:17 ED Decision to Admit Stat 04/12/24 20:06 Consult Cardiology Routine Ordered Studies 04/12/24 14:17 CT cervical spine wo con Stat CT head/brain wo con Stat 04/12/24 14:40 CT angio chest PE protocol Stat 04/12/24 20:06 Carotid duplex [US carotid doppler BI] Urgent Hospital Course (1) Syncope: Her symptoms sound as if they are cardiac mediated. Metoprolol has been discontinued. Telemetry. Cardiology consultation and recommendations appreciated. Cardiac echo is unremarkable. Thyroid status is unremarkable. Carotid Doppler evaluation is unremarkable. Treated while hospitalized with IV fluids. (2) Essential hypertension: Will allow blood pressure to run on the high side if necessary. Metoprolol has been discontinued. Telemetry. (3) Hyperlipidemia: Stable. Continue statin therapy (4) Depression: BuSpar has been discontinued (5) Right shoulder pain: From falling at home associated with a syncopal episode. X-rays are negative for fracture. Will use Vicodin as needed for pain control Plan Home today, April 14, off metoprolol and she no longer wants to take BuSpar. She will use Vicodin as needed for any recurrent neck pain. Total Time Total Time Spent Total Time Spent (In Minutes): 45 minutes Discharge Plan Discharge Items Reason For Visit: SYNCOPE Discharge Diagnosis: Recurrent syncope, mechanical fall with right shoulder pain Activity: Resume your previous activity Non-emergency contact: Primary Care Provider Call non-emergency contact if: you have any medication questions and your symptoms worsen Follow-up/Referrals: Laurie Levy CRNP [Primary Care Provider] - Diet: Regular and Heart Healthy Addtl Attending Provider Instructions: Metoprolol and BuSpar have been stopped. Use Vicodin as needed for shoulder pain or neck pain Pending Studies at Discharge: No Stand-Alone Forms: [employer] Smoking Cessation Medications and DC Order Prescriptions: New hydrocodone-acetaminophen 5-325 mg Tablet 1 tab PO Q6H PRN (Reason: pain) Qty: 20 0RF Continued rabeprazole 20 mg tablet,delayed release (DR/EC) 20 mg PO BID levothyroxine 100 mcg tablet 1 mcg PO DAILYBB rosuvastatin 20 mg tablet 20 mg PO HS aspirin [Aspirin Low-Strength] 81 mg Tablet,Delayed Release (Dr/Ec) 81 mg PO HS cholecalciferol (vitamin D3) [Vitamin D3] 50 mcg (2,000 unit) Tablet 50 mcg PO QAM Discontinued buspirone 10 mg tablet 10 mg PO TID metoprolol succinate 25 mg tablet extended release 24 hr 25 mg PO HS Admission Data Admit Date/Time: 04/12/24 17:00 Attending Provider: Jaswant Yuan Admit Provider: Jaswant Yuan Primary Care Provider: Laurie Levy Other Providers: Nabil Jung; Jasbir Randolph; Mark Osorio; Jean Kay; Ariel Newton; Anam Welch; Chacho Scales Jr; Keenan Lundberg; Yvonne Rodriguez; Fauzia Jaime; Taiwo Majano; Taiwo Page; Jaswant Lee; Latha Arora; Nickolas Pereyra; Adrienne Cervantes; Dandy Gray; Krunal Bear; Juan Salas; Kevin Fair; [facility] Coding Level of Care Code 38106 INP/OBS DISCH >30 MIN Diagnoses Syncope R55 Syncope type: unspecified Essential hypertension I10 Hyperlipidemia E78.5 Depression F32.A Right shoulder pain M25.511
== END 2024-04-14 17:22 | disposition home health service (06) | DRG 312 ==
LOC: ED 13:14 → 2N 17:00 → INTOOBSV 17:00 → 2N 18:19